=== PATIENT | female | born 1980 | race Caucasian/White ===

== ENCOUNTER → 2017-02-15 | Outpatient (CLI) | payer BC ==
--- NOTE | 2017-02-15 19:45 | CT ---
EXAMINATION TYPE: CT facial bones wo con DATE OF EXAM: 02/15/2017 COMPARISON: NONE HISTORY: Hematoma to nasal area after injury x2 weeks ago. CT DLP: 583 mGycm Automated exposure control for dose reduction was used. TECHNIQUE: CT scan of the sinuses is performed without contrast, axial images are obtained, coronal r eformatted images are also reviewed. FINDINGS: The orbital margins are intact. There is a small mucous retention cyst in the left maxillar y sinus. There is a similar 5 mm cyst in the right maxillary sinus. The other paranasal sinuses appea r normal. There is bilateral patency of the ostiomeatal complex. There is no evidence of blowout frac ture. Nasal bone appears intact. Zygomatic arches appear normal. Maxilla is intact. The mandible appe ars intact. There is no evidence of orbital mass. CONCLUSION: Small mucous retention cysts in the maxillary sinuses. Otherwise negative exam. No fracture.
== END | disposition home or self-care (01) ==
LOC: RADCTMAIN 18:33
PROVIDERS: ATTEND Otolaryngology
DX: S09.93XA Unspecified injury of face, initial encounter (principal); J34.1 Cyst and mucocele of nose and nasal sinus
CPT/HCPCS: 70486

== ENCOUNTER → 2017-08-20 | Outpatient (CLI) | payer BC ==
--- NOTE | 2017-08-20 10:50 | CT ---
EXAMINATION TYPE: CT sinus wo con DATE OF EXAM: 08/20/2017 COMPARISON: CT facial bones February 15, 2017. HISTORY: Chronic maxillary sinusitis per order. Left-sided facial pain since August 13. CT DLP: 583.70 mGycm. Automated Exposure Control for Dose Reduction was Utilized. TECHNIQUE: CT scan of the sinuses is performed without contrast, axial images are obtained, coronal r eformatted images are also reviewed. FINDINGS: There is tiny mucous retention cyst or polyp in the inferior medial right maxillary sinus r edemonstrated. There is large or mucous retention cyst or polyp in the inferior left maxillary sinus. There is mild eccentric mucosal thickening in the posterior inferior left maxillary sinus redemonstr ated. Remainder paranasal sinuses remain clear without suspicious opacification or air-fluid levels. The ostiomeatal complex remain patent bilaterally on the coronal images. Visualized portion of mastoid air cells show no abnormal opacification. The globes are intact bilate rally. Visualized portion of brain parenchyma is unremarkable. IMPRESSION: Chronic maxillary sinus disease redemonstrated felt stable. No acute sinusitis identifie d.
== END ==
LOC: RADCTMAIN 10:21
PROVIDERS: ATTEND Physician Assistant
DX: J34.89 Other specified disorders of nose and nasal sinuses (principal); J32.0 Chronic maxillary sinusitis
CPT/HCPCS: 70486

== ENCOUNTER 2019-01-16 08:40 | Day surgery (SDC) | payer BC ==
[2019-01-13 14:35] VITALS: BMI 28.7
--- NOTE | 2019-01-15 16:23 | P.HPOB ---
History of Present Illness H&P Date: 01/15/19 Chief Complaint: Family planning Bailey is 38-year-old female who is completed her family planning and desires permanent sterilization. Risks/benefits/alternatives to a laparoscopic tubal occlusion with Filshie clipped were reviewed with patient in detail and all questions were answered for her prior to proceeding to the operative room. Risks and benefits did include but were not limited to bleeding and infection, damage to bladder, damage to bowel, vascular disease current nerve damage, ureteral injuries. There is a anywhere from 2-4 per thousand failure rate potentially and this is designed be a permanent procedure. All the questions were answered for her prior to proceeding to the operative room. Past Medical History Additional Past Medical History / Comment(s): environmental and seasonal allergies receives allergy shots x1/wk History of Any Multi-Drug Resistant Organisms: None Reported Past Surgical History: Section Additional Past Surgical History / Comment(s): lt eye-latus degenerative disease repair. septoplasty,sinus nodules removed. C/S x2 Past Anesthesia/Blood Transfusion Reactions: No Reported Reaction Smoking Status: Former smoker - Past Family History Mother Family Medical History: No Reported History Medications and Allergies Home Medications Medication Instructions Recorded Confirmed Type Fexofenadine HCl [[place] Allergy] 180 mg PO DAILY 01/13/19 01/13/19 History Allergies Allergy/AdvReac Type Severity Reaction Status Date / Time gluten Allergy achiness Verified 01/13/19 14:27 tomato Allergy Anaphylaxis Verified 01/13/19 14:27 Exam Osteopathic Statement: *. No significant issues noted on an osteopathic structural exam other than those noted in the History and Physical/Consult. - OBG Physical Exam Breast: both: normal (no masses) Abdomen: bowel sounds normal, no diffuse tenderness, no bruit present, no guarding noted, no hepatomegaly, no splenomegaly, no mass Vulva: both: normal Vagina: normal moisture, no discharge Cervix: no lesion, no discharge Uterus: normal size, normal contour Adnexa: both: normal Anus/Rectum: normal perianal skin, no rectal mass, no hemorrhoids, heme negative
[~2019-01-16 08:40] MED LIST: DEXAMETHASONE SOD PHOSPHATE 10 MG/ML 1 ML VIAL IV ONE; LACTATED RINGERS 1,000 ML IV SCH; ONDANSETRON 4 MG/2 ML VIAL IVP ONE; Pre Op ABX Message 1 EACH MISC MISCELLANE ONE
[2019-01-16] MEDS ORDERED: LIDOCAINE 1% 20 ML VIAL (10MG/ML) FOR IV START INTRADERMA ONE (09:02)
[2019-01-16] MEDS ORDERED: ROCURONIUM BROMIDE 10 MG/ML 10 ML VIAL IV ONE (09:23)
[2019-01-16] MEDS ORDERED: LIDOCAINE 1% INJ 10MG/ML (20 ML MDV) ONE (09:23)
[2019-01-16] MEDS ORDERED: GLYCOPYRROLATE 0.2 MG/ML 2 ML VIAL ONE (09:23)
[2019-01-16] MEDS ORDERED: NEOSTIGMINE 1 MG/ML 10 ML VIAL ONE (09:23)
[2019-01-16] MEDS ORDERED: fentaNYL (PF) 50 MCG/ML 2 ML AMP ONE (09:23)
[2019-01-16] MEDS ORDERED: MIDAZOLAM 2 MG/2 ML VIAL ONE (09:23)
[2019-01-16] MEDS ORDERED: PROPOFOL 10 MG/ML 20 ML VIAL IV ONE (09:23)
[2019-01-16] MEDS ORDERED: SUCCINYLCHOLINE CHLORIDE 100 MG/5 ML SYR IV ONE (09:23)
[2019-01-16] MEDS ORDERED: KETOROLAC 30 MG/ML 1 ML VIAL ONE (09:23)
[2019-01-16] MEDS ORDERED: BUPIVACAINE (PF) 0.5% 30 ML VIAL SQ ONE (09:29)
--- NOTE | 2019-01-16 10:05 | P.OP ---
Date of Procedure: 01/16/19 Preoperative Diagnosis: Family planning Postoperative Diagnosis: Same Procedure(s) Performed: Laparoscopic tubal occlusion with Filshie clips Anesthesia: LAKISHA Surgeon: Alexis Garsia Estimated Blood Loss (ml): 3 IV fluids (ml): 400 Urine output (ml): 50 Pathology: none sent Condition: stable Disposition: same day Operative Findings: Normal uterus, ovaries and tubes, noted adhesion of bladder to anterior uterus from prior sections Description of Procedure: Patient was taken to the operating suite where a general anesthetic was found be adequate. She was prepped and draped in the normal sterile fashion and placed in the dorsal lithotomy position. Initially a speculum was inserted into the vagina and the anterior lip of the cervix was identified and grasped with an Allis clamp and then a manipulator was inserted without difficulty. Red rubber catheter was then used to drain the bladder of urine close were then changed and attention was turned to abdominal portion procedure where 2 mL of quarter percent Marcaine was injected periumbilically. Through this injected anesthetic a 5 mm skin incision was made and through this incision under direct visualization with an optical trocar and sleeve the camera was inserted. Once peritoneal placement was assured gas was left fully insufflate the abdomen and patient was placed in Trendelenburg position. Second 8 mm skin incision was th en made through her old scar in the midline. Through this incision an 8 mm port and sleeve were inserted under direct visualization. Uterus was then elevated fallopian tubes were identified remainder pelvis and abdomen were examined. First the right fallopian tube than left fallopian tube had a Filshie clip applied 2 cm from uterine cornu with no bleeding noted in the mesosalpinx instruments removed and gas was allowed to expel from the abdomen. 5 deep breaths were provided during this process. Once this was completed sleeves removed and the incisions were closed with 4-0 Vicryl subcuticularly. Another 4 mL of quarter percent Marcaine was injected around these incisions. Instruments were then removed from the vagina. Sponge, lap, needle counts all correct 2. Patient was then taken to the recovery room in stable and satisfactory condition. Plan - Discharge Summary Discharge Rx Participant: Yes New Discharge Prescriptions: New Ibuprofen [Motrin] 600 mg PO Q6HR PRN #30 tab PRN Reason: Pain HYDROcodone/APAP 5-325MG [[place] 5-325] 1 tab PO Q4HR PRN #30 tab PRN Reason: Pain No Action Fexofenadine HCl [[place] Allergy] 180 mg PO DAILY Discharge Medication List Fexofenadine HCl [[place] Allergy] 180 mg PO DAILY 01/13/19 [History] HYDROcodone/APAP 5-325MG [[place] 5-325] 1 tab PO Q4HR PRN #30 tab 01/16/19 [Rx] Ibuprofen [Motrin] 600 mg PO Q6HR PRN #30 tab 01/16/19 [Rx] Follow up Appointment(s)/Referral(s): Alexis Garsia DO [Doctor of Osteopathic Medicine] - 2 Weeks Activity/Diet/Wound Care/Special Instructions: No heavy lifting, limit stairs and driving, and pelvic rest. If any high temperatures, heavy bleeding, or severe pain call my Discharge Disposition: HOME SELF-CARE
[2019-01-16] MEDS: HYDROmorphone 0.5 MG/0.5 ML SYRINGE IVP PRN ×4 (10:17→10:46)
[2019-01-16 10:25] VITALS: TEMP 97.4
[2019-01-16] MEDS ORDERED: HYDROcodone/APAP 5-325MG 1 EACH TAB PO ONE (11:12)
[2019-01-16 12:36] VITALS: RESP 18
[2019-01-16] MEDS ORDERED: diphenhydrAMINE 50 MG/ML 1 ML VIAL IVP ONE (12:50)
[2019-01-16 12:59] VITALS: BP 128/82; PULSE 50
== END 2019-01-16 13:45 | disposition home or self-care (01) ==
LOC: OR 08:40
PROVIDERS: ATTEND Obstetrics & Gynecology
DX: Z30.2 Encounter for sterilization (principal); Z87.891 Personal history of nicotine dependence; Z79.899 Other long term (current) drug therapy; Z91.018 Allergy to other foods
CPT/HCPCS: 81025; 58671; J2250; J1200; J1100; J2710; J2405; J2001; J3010; J1885; J0330; J2704; J1170

== ENCOUNTER → 2021-08-17 | Outpatient (CLI) | payer BC ==
[2021-08-17 10:45] LABS: HCT 41.4 % (37.2-46.3); HGB 12.7 g/dL (12.0-15.0); MCH 27.5 pg (27.0-32.0); MCHC 30.7 g/dL (32.0-37.0); MCV 89.6 fL (80.0-97.0); Mean Platelet Volume 10.2 fL (9.5-12.2); NRBC Per 100 WBC 0 /100 WBCS (0.0-0.0); Platelet Count 291 X 10*3/uL (140-440); RBC 4.62 X 10*6/uL (4.10-5.20); RDW 13.2 % (11.5-14.5); WBC 6.39 X 10*3/uL (4.50-10.00)
[2021-08-17 15:02] LABS: Chol/HDL Ratio 3.76 Ratio; LDL Cholesterol,Calculated 169.6 mg/dL (0.0-131.0); VLDL Calculation 11.68 mg/dL (5.00-40.00)
--- NOTE | 2021-08-18 14:41 | MM ---
Reason for exam: screening (asymptomatic). Last mammogram was performed 5 years and 6 months ago. History: Patient had first child at age 29. Took hormonal contraceptives beginning at age 19. Physical Findings: A clinical breast exam by your physician is recommended on an annual basis and results should be correlated with mammographic findings. MG 3D Screening Mammo W/Cad Bilateral CC and MLO view(s) were taken. Prior study comparison: February 04, 2016, bilateral MG 3d screening mammo w/cad. The breast tissue is extremely dense which could obscure a lesion on mammography. There is chronic nodularity bilaterally, stable. No significant changes when compared with prior studies. ASSESSMENT: Benign, BI-RAD 2 RECOMMENDATION: Routine screening mammogram of both breasts in 1 year.
== END | disposition home or self-care (01) ==
LOC: RADMAMWWP 07:32
PROVIDERS: ATTEND Obstetrics & Gynecology
DX: Z12.31 Encounter for screening mammogram for malignant neoplasm of breast (principal); Z13.220 Encounter for screening for lipoid disorders; Z13.29 Encounter for screening for other suspected endocrine disorder
CPT/HCPCS: 77063; 77067; 80061; 84439; 84443; 84479; 85027

== ENCOUNTER → 2022-11-24 | Outpatient (CLI) | payer BC ==
--- NOTE | 2022-11-24 15:18 | CT ---
EXAMINATION TYPE: CT heart w calcium score DATE OF EXAM: 11/24/2022 COMPARISON: HISTORY: Screening for cardiovascular disorder. 213.9 CT DLP: 71.7 mGycm Automated exposure control for dose reduction was used. CT CALCIUM SCORING Coronary calcium is a marker for plaque (fatty deposits) in a blood vessel or atherosclerosis (harden ing of the arteries). The presence and amount of calcium detected in a coronary artery by the CT sca n, indicates the presence and amount of atherosclerotic plaque. These calcium deposits appear years before the development of heart disease symptoms such as chest pain and shortness of breath. A calcium score is computed for each of the coronary arteries based upon the volume and density of th e calcium deposits. This can be referred to as your calcified plaque burden. It does not correspond directly to the percentage of narrowing in the artery but does correlate with the severity of the un derlying coronary atherosclerosis. PROCEDURE TECHNIQUE - Prospective Gating was used. Slice thickness: 3mm. Density threshold (HU): 130, Pixel threshold: 3, Algorithm: discrete. RESULTS Region: LM Calcium Score ([place]): 0 Volume (mm3): 0 Mass (g): 0 Region: RCA Calcium Score ([place]): 0 Volume (mm3): 0 Mass (g): 0 Region: LAD Calcium Score ([place]): 0 Volume (mm3): 0 Mass (g): 0 Region: CX Calcium Score ([place]): 0 Volume (mm3): 0 Mass (g): 0 Region: PDA Calcium Score ([place]): 0 Volume (mm3): 0 Mass (g): 0 Total: Calcium Score ([place]): 0 Volume (mm3): 0 Mass (g): 0 TOTAL CALCIUM SCORE: 0 IMPRESSION: Calcium Score: 0 Implication: Low risk for stenosis from atheromatous plaque Risk of Coronary Artery Disease: Very low Impression: 1. Very low risk for significant stenosis coronary vessels at this time. CALCIUM SCORE IMPLICATION RISK OF C ORONARY ARTERY DISEASE 0 No identifiable plaque Very low, generally less than 5% 1-10 Minimal identifiable plaque Very unlikely, less than 10% 11-100 Definite, at least mild atherosclerotic plaque Mild or m inimal coronary narrowings likely 101-400 Definite, at least moderate atherosclerotic plaque Mild coronary ar jason disease highly likely, significant narrowing possible 401 or Higher Extensive atherosclerotic plaque High lik elihood of at least one significant coronary narrowing
== END | disposition home or self-care (01) ==
LOC: RADCTMAIN 06:56
DX: Z13.6 Encounter for screening for cardiovascular disorders (principal); E78.5 Hyperlipidemia, unspecified
CPT/HCPCS: 75571